=== PATIENT | male | born 1990 | race Caucasian/White ===

== ENCOUNTER 2018-09-27 00:56 | Emergency (ER) | payer BC ==
[~2018-09-27] VITALS: Ht 180.3 cm; Wt 67.1 kg
[~2018-09-27 00:56] MED LIST: NO MEDS
[2018-09-27 01:12] VITALS: BP 111/87
[2018-09-27] MEDS ORDERED: LIDOCAINE 2% 20 ML MDV ONE (02:17)
[2018-09-27] MEDS ORDERED: SODIUM BICARBONATE 5 ML VIAL ONE (02:17)
[2018-09-27] MEDS ORDERED: SODIUM BICARBONATE 5 ML VIAL TP ONE (02:30)
[2018-09-27] MEDS ORDERED: LIDOCAINE 2% 20 ML MDV TP ONE (02:30)
== END 2018-09-27 02:54 | disposition home or self-care (01) ==
LOC: ER 01:01
DX: S92.531A Displaced fracture of distal phalanx of right lesser toe(s), initial encounter for closed fracture (principal); Z98.890 Other specified postprocedural states; W22.8XXA Striking against or struck by other objects, initial encounter; Y93.89 Activity, other specified; Y92.89 Other specified places as the place of occurrence of the external cause; Y99.8 Other external cause status
CPT/HCPCS: 28515; 73660; 99284; A6403; J3490 ×2